=== PATIENT | male | born 1975 | race Caucasian/White ===

== ENCOUNTER 2019-01-18 22:30 | Emergency (ER) | payer SELFPAY | END 2019-01-19 05:36 | LOC: JER 22:30 ==

== ENCOUNTER 2019-05-17 20:04 | Emergency (ER) | payer SELFPAY ==
--- NOTE | 2019-05-17 20:17 | PDOC ---
History of Present Illness - General Stated Complaint: INTOXICATION Time Seen by Provider: 05/17/19 20:16 - History of Present Illness Initial Comments: 05/17/19 20:27 43yo M hx alcohol abuse BIBEMS for alcohol intoxication. History obtained from EMS. Pt found wandering streets [place] [facility], appeared intoxicated, verbally abusing people, detained but not arrested by police, sent with EMS here due to intoxication. No falls, trauma, LOC, or injuries witnessed by EMS. Pt denies falls, trauma, head injury, LOC, pain, any complaints. Pt states he wants to go home, is yelling and verbally aggressive, refuses to answer questions. Past History - Past Medical History Allergies/Adverse Reactions: Allergies Allergy/AdvReac Type Severity Reaction Status Date / Time No Known Allergies Allergy Verified 12/17/14 15:55 Home Medications: Ambulatory Orders Unobtainable 01/19/19 Cardiac Disorders: Yes (CHILDHOOD MURMUR) COPD: No Psychiatric Problems: Yes (BIPOLAR DEPRESSION) - Surgical History Abdominal Surgery: Yes (hernia repair) - Immunization History Immunization Up to Date: No - Psycho Social/Smoking Cessation Hx Smoking History: Current every day smoker Have you smoked in the past 12 months: Yes Number of Cigarettes Smoked Daily: 10 'Breaking Loose' booklet given: 10/27/14 Hx Alcohol Use: Yes Drug/Substance Use Hx: Yes Substance Use Type: Alcohol, Marijuana Review of Systems - Review of Systems Comments:: 05/17/19 22:06 Constitutional: Negative for chills, fever, fatigue, diaphoresis. HENT: Negative for sore throat, rhinorrhea, congestion. Eyes: Negative for visual disturbance. Respiratory: Negative for shortness of breath, cough, and wheezing. Cardiovascular: Negative for chest pain, palpitations, and leg swelling. Gastrointestinal: Negative for abdominal pain, blood in stool, constipation, diarrhea, nausea, and vomiting. Genitourinary: Negative for dysuria, flank pain, and hematuria. Musculoskeletal: Negative for myalgias, back pain, and neck pain. Skin: Negative for rash. Neurological: Negative for light-headedness, dizziness, vertigo, syncope, weakness, numbness and headaches. Psychiatric/Behavioral: Positive for agitation and alcohol use. *Physical Exam - Physical Exam Comments: 05/17/19 22:07 Gen: Alert, NAD, very agitated, pacing in room, yelling and verbally abusive to ED staff, slurring speech HEENT: PERRL, EOMI, MMM, NCAT +R forehead cyst (chronic), No conjunctival pallor. Sclera are non-icteric. Oropharynx is clear. CV: Regular rate and rhythm. No murmurs, rubs, or gallops. PULM: No resp distress. CTAB, no wheezes, rales, or rhonchi. ABD: soft, NT/ND, no rebound tenderness or guarding, no CVA tenderness. BACK: No TTP of c/t/l-spine. No step-offs or deformities. MSK: No bony deformities. 2+ pulses in all extremities. NEURO: Alert, refuses to answer orientation questions. PERRL. Slurred speech but otherwise no gross CN deficits. Strength and sensation grossly intact throughout. EXTREMITIES: No cyanosis. No clubbing. No edema. No calf tenderness. PSYCH: Normal mood and thought pattern. SKIN: Warm and dry. Normal capillary refill. No rashes. No jaundice. No signs of trauma. Medical Decision Making - Medical Decision Making 05/17/19 20:27 43yo M hx alcohol abuse BIBEMS for alcohol intoxication. History obtained from EMS. Pt found wandering streets of [place] [facility], appeared intoxicated, verbally abusing people, detained but not arrested by police, sent with EMS here due to intoxication. No falls, trauma, LOC, or injuries witnessed by EMS. Pt denies falls, trauma, head injury, LOC, pain, any complaints. Pt states he wants to go home, is yelling and verbally aggressive, refuses to answer questions. Pt appears clinically intoxicated and is unsafe to go home at this time - Code 10 ordered, Haldol 5mg IM for agitation. Most likely alcohol intoxication, also consider drug intoxication or alcohol withdrawal. Due to presentation and limited exam at this time, consider and r/o hypoglycemia with fingerstick glucose. No reported head injury or trauma indicating CT head at this time - will reassess once clinically sober. -Haldol 5mg IM -Fingerstick glucose -Dispo: pending clinical sobriety 05/17/19 21:09 Ketamine 300 IM for agitation 05/17/19 21:50 Pt sleeping comfortably. Finger stick glucose 93 05/17/19 22:37 Pt sleeping comfortably, no complaints. 05/17/19 23:32 Pt agitated again, yelling. 200 IM Ketamine 05/17/19 23:58 Maries thunk suspicious for fall from bed. Found pt on knees next to bed leaning on sink with head under faucet (not running) trying to stand up, red face, muscles contracted, moaning, bed rails both up. No e/o head injury or trauma on exam. New AMS, behaviours, HTN, and tachycardia most likely due to ketamine. Still intoxicated. 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 Pt has no complaints. VS normalized. 05/18/19 05:08 Pt awake, alert, oriented to self/location/day/situation, speech clear, calm but quickly can become agitated. Pt states he drank too much so was brought here by police, denies falls or trauma or head injury, denies drug use, denies pain. Complete physical exam performed - neurologically intact (gait not assessed, [id number] and LUCIANA and [id number] not assessed due to soft restraints), heart RRR, lungs CTAB, abdomen soft NT/ND, no signs of trauma. Alcohol level sent. 05/18/19 06:23 Alcohol 99.4. Clear speech, stable gait, AAOx4, no complaints, wants to go home. Clinically sober and able to make decisions. Will dc home with PCP f/u. Return precautions given. Pt understands all dc instructions and all questions were answered. Discharge - Discharge Information Problems reviewed: Yes Clinical Impression/Diagnosis: Alcohol intoxication Condition: Improved Disposition: HOME - Admission No - Follow up/Referral Referrals: [facility] [Provider Group] - Patient Discharge Instructions Patient Printed Discharge Instructions: DI for Alcohol Abuse Additional Instructions: You have been seen in the Emergency Department for your alcohol intoxication ( poisoning). You were observed and recovered with rest and medications. Follow-up with your primary care doctor within 1 week. We have given you a referral to the [facility] to set up a primary care doctor. As you know, alcohol use is dangerous and can cause many dangerous health problems including but not limited to and permanent disability. If you would like to quit drinking, let your doctor know so he can safely help you quit. Good luck on your recovery! Return to the ED immediately if you experience chest pain, difficulty breathing , dizziness, or any other new or worsening symptom. - Post Discharge Activity
[2019-05-17] MEDS ORDERED: HALOPERIDOL LACTATE 5 MG/ML IM ONE ×2 (20:31→23:47)
--- NOTE | 2019-05-17 20:37 | PDOC ---
Attending Attestation - Resident Resident Name: Debbie Valdez - ED Attending Attestation I have performed the following: I have examined & evaluated the patient, The case was reviewed & discussed with the resident, I agree w/resident's findings & plan - HPI HPI: 05/17/19 20:35 43 yom with h/o alcohol use, prior ED visits for similar presentation and intoxication presenting with alcohol intox he was found at festival in [place], wandering the streets intoxicated history provided by EMS, no known trauma/falls when he was found. pt was verbally abusive, agitated. 05/17/19 23:04 - Physicial Exam PE: 05/17/19 20:50 agree with HPI and PE with resident note very agitated, poorly cooperative rt forehead with chronic cyst. slurring speech, intoxicated no respiratory distress. TENORIO x4. abdomen soft, nontender normal color, no laceration/abrasions or injuries noted. 05/17/19 21:02 - Medical Decision Making 05/17/19 21:03 Vital Signs Temp Pulse Resp BP Pulse Ox 97.4 F L 79 16 122/86 95 05/17/19 20:20 05/17/19 20:20 05/17/19 20:20 05/17/19 20:20 05/17/19 20:20 DDx. alcohol intoxication, alcohol withdrawal. drug intoxication Patient demonstrates clinical evidence for alcohol intoxication. The patient admits to intentional heavy drinking of alcohol and denies fall or injury. The patient also denies drug use. Some of the history and physical exam is limited due to the state of intoxication. all parts of the body were evaluated and there is no evidence of acute trauma. The plan is to observe patient in the ED until clinical sobriety is reached and reassess history and physical examination. while in the ED - pt is very belligerent and verbally abusive, making racist comments and attempting to elope, requesting to call cab and go home. pt is severely intoxicated, cannot leave as unsafe at this time will give haldol/ketamine for his agitation/aggression. pt poorly cooperative, as he tries to negotiate, wander the department, walks up to desk requesting to leave. gait is unsteady, as he is heavily intoxicated. 05/18/19 00:18 - pt acted out. found on the ground on his knees pulling at sink to get up. no evidence of head trauma. still intoxicated. defer imaging at this time. under influence of additional ketamine, now catecholamines effect, + hypertensive and tachycardic. appearing very tense required security to hold down. soft restraints. on monitor no events subsequently additional haldol/ativan 5/2mg for the episode now sleeping. continue sobriety watch. 05/18/19 01:20
[2019-05-17] MEDS ORDERED: HALOPERIDOL LACTATE 5 MG/ML ONE ×2 (20:38→23:49)
[2019-05-17 20:44] VITALS: TEMP 97.4; BMI 26.5
[2019-05-17] MEDS ORDERED: KETAMINE HCL 200 MG/20 ML VIAL IM ONE (20:54)
[2019-05-17] MEDS ORDERED: KETAMINE HCL 500 MG/10 ML VIAL ONE ×2 (20:58→23:23)
[2019-05-17] MEDS ORDERED: KETAMINE HCL 500 MG/10 ML VIAL IM ONE (23:00)
[2019-05-17] MEDS ORDERED: KETAMINE HCL 200 MG/20 ML VIAL ONE (23:03)
[2019-05-17] MEDS ORDERED: LORazepam 2 MG/ML SDV VIAL ONE (23:50)
[2019-05-18 00:56] VITALS: PULSE 91
[2019-05-18 03:10] VITALS: BP 106/63
== END 2019-05-18 06:58 | disposition home or self-care (01) ==
LOC: JER 20:04
PROC: 3E023NZ Introduction of Analgesics, Hypnotics, Sedatives into Muscle, Percutaneous Approach (ICD-10-PCS; principal; 2019-05-17)
PROC: 3E023NZ Introduction of Analgesics, Hypnotics, Sedatives into Muscle, Percutaneous Approach (ICD-10-PCS; 2019-05-17)
PROC: 3E023BZ Introduction of Anesthetic Agent into Muscle, Percutaneous Approach (ICD-10-PCS; 2019-05-17)
DX: F10.120 Alcohol abuse with intoxication, uncomplicated (principal); Y90.4 Blood alcohol level of 80-99 mg/100 ml; F31.9 Bipolar disorder, unspecified; Z86.79 Personal history of other diseases of the circulatory system; F17.210 Nicotine dependence, cigarettes, uncomplicated
CPT/HCPCS: 36415; 80307; 82962; 99283-25